=== PATIENT | female | born 2000 ===

== ENCOUNTER 2025-07-01 08:57 | Outpatient (REF) | payer OTHER, SELFPAY ==
--- NOTE | ~2025-07-01 | US_ITS ---
EXAMINATION: US PELVIS TRANSABDOMINAL AND TRANSVAGINAL HISTORY: IRREGULAR PERIODS, EVALUATE FOR PCOS COMPARISON: There are no prior studies available for comparison. TECHNIQUE: Transabdominal and endovaginal real-time 2D maciel-scale ultrasound was performed. FINDINGS: LMP:06/30/2025 Uterus: Uterus is retroverted and retroflexed, measuring 6.2 x 2.7 x 3.8 cm. Myometrium has a normal echotexture. No focal uterine lesion Endometrium: The endometrial stripe measures 7 mm in thickness. Right ovary: The right ovary measures 2.4 x 1.3 x 2.1 cm. Volume 2.9 mL . Ovary is normal in echotexture. Small follicles present. Left ovary: The left ovary measures 2.6 x 1.4 x 2.2 cm. Volume 4.2 mL . Ovary is normal in echotexture. Multiple follicles are present, larger measuring 0.6 cm. Normal-appearing vascular flow in bilateral ovaries. Pelvic fluid: none. US/US pelvic and transvaginal IMPRESSION: No significant abnormality demonstrated by ultrasound. Electronically signed by: Schuyler Tate MD 07/01/2025 04:55 PM [facility] [place]
== END 2025-07-01 08:58 | disposition home or self-care (01) ==
LOC: HO.UMASIMG 08:57
PROVIDERS: Visit Provider Family Medicine
DX: N92.6 Irregular menstruation, unspecified (principal); Z11.3 Encounter for screening for infections with a predominantly sexual mode of transmission
CPT/HCPCS: 76830; 76856

== ENCOUNTER → 2025-07-01 15:25 | Outpatient (BNV) | payer OTHER, SELFPAY | PROVIDERS: Visit Provider Radiology Diagnostic Ultrasound | DX: N92.6 Irregular menstruation, unspecified (principal); Z13.29 Encounter for screening for other suspected endocrine disorder | CPT/HCPCS: 76830; 76856 ==